=== PATIENT | female | born 1980 | race Caucasian/White ===

== ENCOUNTER 2020-05-09 21:41 | Emergency (ER) | payer MEDICAID ==
[~2020-05-09] VITALS: Ht 170.2 cm; Wt 101.5 kg
[~2020-05-09 21:41] MED LIST: CEPH-264 PO
[2020-05-09] MEDS ORDERED: IV NORMAL SALINE 1,000ML 1,000 ML IV ONE (22:00)
[2020-05-09] MEDS ORDERED: ASPIRIN 325 MG TABLET PO ONE (22:00)
--- NOTE | 2020-05-09 22:25 | PHYS DOC ---
Past History Past Medical History: Migraines Additional Past Medical Histor: endocarditis Past Surgical History: Tubal ligation Smoking: Cigarettes, Greater than 1 pack/day Alcohol Use: None Drug Use: Marijuana, Methamphetamine General Adult EDM: Chief Complaint: CHEST PAIN HPI: HPI: Patient is a 40 year old female who presents with chest pain approximately 45 minutes prior to arrival in the ED she was sitting in her car when she experienced an acute onset of 8/10 squeezing midsternal chest pain that radiated to her back. The was non-positional and non-pleuritic. She tried taking deep breaths changing position, but nothing made the pain worse or better. Her pain o nly finally was relieved once she got into the ED and was distracted by all of the nursing staff caring for her. 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 She states she has a history of panic attacks but has never experienced pain like this during one of them. She endorses a social history complicated by a prolonged state of being unhoused. She is currently living with her ex- and 12 other people, in a situation that adds to her stress. She is a 25+ pack year smoker. She has a past history of GERD that has been worsening in the last year. Review of Systems: Review of Systems: Constitutional: Denies fever or chills Eyes: Denies redness or eye pain HENT: Denies nasal congestion or sore throat. Admits headache this morning Respiratory: Denies cough or shortness of breath Cardiovascular: Admits chest pain. Denies palpitations GI: Denies abdominal pain, nausea, or vomiting : Denies dysuria or hematuria Musculoskeletal: Admits back pain. Denies joint pain Integument: Denies rash or skin lesions Neurologic: Denies headache, focal weakness or sensory changes Complete systems were reviewed and found to be within normal limits, except as documented in this note. Current Medications: Current Meds: Current Medications Medications (Trade) Dose Ordered Sig/Jonathan Start Time Stop Time Status Last Admin Dose Admin Aspirin (Nicole Aspirin) 325 mg 1X ONCE 05/09/20 22:00 05/09/20 22:01 UNV Sodium Chloride 1,000 ml @ 1,000 mls/hr 1X ONCE 05/09/20 22:00 1/20/21 22:59 UNV Allergies: Allergies: Allergies Coded Allergies Type Severity Reaction Last Updated Verified No Known Drug Allergies 03/23/14 No Physical Exam: PE: Constitutional: Well developed, overweight, mild distress, non-toxic appearance HENT: Normocephalic, atraumatic Eyes: PERRL, EOMI, conjunctiva normal, no discharge Neck: Normal range of motion, no tenderness, supple Lungs & Thorax: No respiratory distress, equal chest rise and fall Abdomen: Soft, no tenderness Skin: Warm, dry, no erythema, no rash Back: No tenderness, no CVA tenderness Extremities: No tenderness, ROM intact, no edema Neurologic: Alert and oriented X 3, normal motor function, normal sensory function, no focal deficits noted Psychologic: Affect anxious, judgment normal Current Patient Data: Vital Signs: Vital Signs Date Time Temp Pulse Resp B/P (MAP) Pulse Ox O2 Delivery O2 Flow Rate FiO2 05/09/20 21:41 98.6 101 20 126/107 (113) 99 Room Air EKG: EKG: @2149 EKG sinus rhythm HR [address] elevations. QRS 96 ms, QT/QTc 338/439 ms Radiology/Procedures: Radiology/Procedures: PROCEDURE: CHEST AP ONLY EXAM: XR CHEST 1V 05/10/2020 12:29 AM CLINICAL INDICATION: Chest pain COMPARISON: None TECHNIQUE: AP view of the chest FINDINGS: The heart and mediastinum are normal. Lungs are well-expanded and clear. No consolidation, pleural effusion, or pneumothorax. Pulmonary vascularity is normal. The thoracic skeleton is intact. IMPRESSION: Normal chest radiograph. Electronically signed by: Chantelle Gtz MD (05/10/2020 2:16 AM) [id number] Heart Score: HEART Score for Chest Pain: HEART Score for Chest Pain Response (Comments) Value History Moderately Suspicious 1 ECG Normal 0 Age < 45 0 Risk Factors 1 or 2 Risk Factors 1 Troponin < Normal Limit 0 Total 2 Risk Factors: Risk Factors: DM, Current or recent (<one month) smoker, HTN, HLP, family history of CAD, obesity. Risk Scores: Score 0 - 3: 2.5% MACE over next 6 weeks - Discharge Home Score 4 - 6: 20.3% MACE over next 6 weeks - Admit for Clinical Observation Score 7 - 10: 72.7% MACE over next 6 weeks - Early Invasive Strategies Course & Med Decision Making: Course & Med Decision Making Pertinent Labs and Imaging studies reviewed. (See chart for details) Patient presents with report of sudden onset of chest pain. Low cardiac risk fa ctors. Patient does have a history of PE. Sats stable. EKG without acute process. Labs obtained and posted to chart. Troponin within normal limits. D- dimer negative. LFTs slightly elevated. Chest x-ray without acute process. Patient reports interval improvement of symptoms. Patient stable for discharge with outpatient follow-up with PCP. GI and cardiology referrals provided. Discussed findings and plan with patient, who acknowledges understanding and agreement. Dragon Disclaimer: Dragon Disclaimer: This electronic medical record was generated, in whole or in part, using a voice recognition dictation system. Departure Departure: Impression: Primary Impression: Chest pain Qualified Codes: R07.9 - Chest pain, unspecified Additional Impression: Methamphetamine abuse Disposition: 01 DC HOME SELF CARE/HOMELESS Condition: STABLE Referrals: PCP,NO (PCP) YAYO ZUÑIGA MD, SCOTT S MD Patient Instructions: Alcohol and Drug Addiction, Finding Treatment, Anxiety and Panic Attacks, [id number], Chest Pain (Nonspecific), [id number], Gastritis, Adult, [id number], Methamphetamine Abuse, Complications Scripts Famotidine (PEPCID) 20 Mg Tablet 1 TAB PO BID for Gastritis, #40 TAB Prov: ANASTACIA ORTIZ DO 05/10/20 ANASTACIA ORTIZ DO May 09, 2020 22:25
[2020-05-09 23:02] LABS: BASO # 0.1 x10^3/uL (0.0-0.2); BASO % 1 % (0-3); EOS # 0.2 x10^3/uL (0.0-0.7); EOS % 4 % (0-3); HEMATOCRIT 39.1 % (36.0-47.0); HEMOGLOBIN 13.1 g/dL (12.0-15.5); LYMPH # 1.3 x10^3/uL (1.0-4.8); LYMPH % 27 % (24-48); MEAN CORPUSCULAR HEMOGLOBIN 30 pg (25-35); MEAN CORPUSCULAR HGB CONC 33 g/dL (31-37); MEAN CORPUSCULAR VOLUME 91 fL (79-100); MONO % 21 % (0-9); NEUT # 2.2 x10^3uL (1.8-7.7); NEUT % 47 % (31-73); PLATELET COUNT 309 x10^3/uL (140-400); RED BLOOD COUNT 4.31 x10^6/uL (3.50-5.40); RED CELL DISTRIBUTION WIDTH 13.3 % (11.5-14.5); WHITE BLOOD COUNT 4.7 x10^3/uL (4.0-11.0)
[2020-05-09] MEDS ORDERED: KETOROLAC 15 MG/ML VIAL. IVP ONE (23:15)
[2020-05-09 23:22] LABS: ALBUMIN 3.1 g/dL (3.4-5.0); ALBUMIN/GLOBULIN RATIO 0.9 (1.0-1.7); CALCIUM 8.3 mg/dL (8.5-10.1); CREATININE 0.9 mg/dL (0.6-1.0); GFR 69.7; MAGNESIUM 1.7 mg/dL (1.8-2.4); POTASSIUM 4.2 mmol/L (3.5-5.1); TOTAL BILIRUBIN 0.1 mg/dL (0.2-1.0); TOTAL PROTEIN 6.6 g/dL (6.4-8.2)
[2020-05-10 00:39] LABS: BACTERIA,URINE FEW /HPF (0-FEW); BILIRUBIN,URINE NEG (NEG); CLARITY,URINE CLEAR; COLOR,URINE YELLOW; GLUCOSE,URINE NEG (NEG); NITRITE,URINE NEG (NEG); RBC,URINE 0 /HPF (0-2); SQUAMOUS EPITHELIAL CELL,UR OCC /LPF; UROBILINOGEN,URINE 0.2 mg/dL (0.2 mg/dL)
[2020-05-10 00:40] LABS: TRICHOMONAS,URINE PRESENT
[2020-05-10 00:44] LABS: BARBITURATES NEG (NEG); BENZODIAZEPINES NEG (NEG); CANNABINOIDS NEG (NEG); COCAINE NEG (NEG); METHADONE NEG (NEG); OPIATES NEG (NEG); PHENCYCLIDINE NEG (NEG)
[2020-05-10 00:46] LABS: AMPHETAMINE/METHAMPHETAMINE POS (NEG)
[2020-05-10] MEDS ORDERED: FAMO-63 PO (00:53)
[2020-05-10 01:13] VITALS: BP 116/70
--- NOTE | 2020-05-10 02:19 | RAD ---
EXAM: XR CHEST 1V 05/10/2020 12:29 AM CLINICAL INDICATION: Chest pain COMPARISON: None TECHNIQUE: AP view of the chest FINDINGS: The heart and mediastinum are normal. Lungs are well-expanded and clear. No consolidatio n, pleural effusion, or pneumothorax. Pulmonary vascularity is normal. The thoracic skeleton is int act. IMPRESSION: Normal chest radiograph. Electronically signed by: Chantelle Gtz MD (05/10/2020 2:16 AM) [id number]
--- NOTE | 2020-05-10 10:09 | EKG ---
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
== END 2020-05-10 01:15 | disposition home or self-care (01) ==
LOC: ER 21:41
DX: R07.2 Precordial pain (principal); F15.10 Other stimulant abuse, uncomplicated; F12.10 Cannabis abuse, uncomplicated; M54.9 Dorsalgia, unspecified; G43.909 Migraine, unspecified, not intractable, without status migrainosus; F17.210 Nicotine dependence, cigarettes, uncomplicated; Z86.711 Personal history of pulmonary embolism
CPT/HCPCS: 36415; 71045; 80053; 80307; 81001; 81025; 82553; 83690; 83735; 83880; 84484; 85025; 85379; 85610; 85730; 87086; 93005; 96361; 96374; 99285; J1885; J7030